=== PATIENT | male | born 1965 | race Caucasian/White ===

== ENCOUNTER 2020-07-14 15:54 | Emergency (ER) | payer OTHER, SELFPAY ==
--- NOTE | ~2020-07-14 | XR_ITS ---
XR ankle RT min 3V 07/14/2020 16:40 Indication: Right ankle pain after fall Procedure: 3 views right ankle Comparison: No prior studies for comparison. Findings: There is a posteriorly displaced oblique distal fibular fracture. There is a nondisplaced m edial malleolar fracture. Possible nondisplaced fracture of the posterior malleolus. There is widenin g of the medial ankle mortise with suggestion of punctate loose bodies in the joint space. Moderate s oft tissue swelling. Impression: 1: Oblique distal fibular fracture with mild dorsal displacement. 2: Nondisplaced medial malleolar fracture with widening of the medial ankle mortise. 3: Possible nondisplaced posterior malleolar fracture. Reviewed, dictated and finalized at location A. [employer]ING [employer] OPERATOR Impression: 1: Oblique distal fibular fracture with mild dorsal displacement. 2: Nondisplaced medial malleolar fracture with widening of the medial ankle mo rtise. 3: Possible nondisplaced posterior malleolar fracture.
--- NOTE | ~2020-07-14 | CT_ITS ---
EXAMINATION: CT ankle RT wo con DATE: 07/14/2020 17:34 INDICATION: History of fracture status post fall TECHNIQUE: Computed tomography (CT) of the right ankle was performed without intravenous contrast. Th e dose-length product was 628.56 mGy-cm. Automated exposure control and iterative reconstruction tech nique were employed. COMPARISON: No prior studies for comparison. FINDINGS: There is an oblique comminuted extra-articular fracture of the distal fibula. There is appr oximately one half bone width dorsal displacement and slight dorsal angulation. There is a comminuted minimally displaced posterior malleolar fracture which extends to the medial malleolus posteriorly. There is fluid along the posterior and medial aspect of the joint space with widening of the medial a nkle mortise. The talus is intact. No other fractures are seen. There are small loose bodies at the j oint space. IMPRESSION: 1. Oblique comminuted extra-articular fracture distal fibula with dorsal displacement and slight dors al angulation. 2: Comminuted minimally displaced posterior malleolar fracture extending to the posterior margin the medial malleolus. There is widening of the medial ankle mortise, likely due to ligament injury. Reviewed, dictated and finalized at location A. [employer] WORK SUPERVISOR IMPRESSION: 1. Oblique comminuted extra-articular fracture distal fibula with dorsal displa cement and slight dorsal angulation. 2: Comminuted minimally displaced posterior malleolar fracture extending to th e posterior margin the medial malleolus. There is widening of the medial ankle mortise, likely due to ligament injury.
[2020-07-14 15:58] VITALS: PULSE 78; RESP 18; TEMP 36.3; O2SAT 100
--- NOTE | 2020-07-14 16:15 | ED.GENADULT ---
HPI - General Adult General Chief complaint: Extremity Injury, Lower Stated complaint: Right Ankle Injury Time Seen by Provider: 07/14/20 16:14 Source: patient Mode of arrival: wheelchair Limitations: no limitations History of Present Illness HPI narrative: Patient was trying to put the screen up around his trampoline when he fell to the ground. There is an obvious deformity to his right ankle. Related Data Allergies Allergy/AdvReac Type Severity Reaction Status Date / Time camphor Allergy Unknown Verified 07/14/20 16:01 morphine Allergy Swelling Verified 07/14/20 16:01 of Lip/Tongue/Throat Review of Systems Review of Systems: All systems reviewed & are unremarkable except as noted in HPI and below PMFSH Family History Family History Other Family history of cardiovascular disease Family history of malignant neoplasm Social History Social History Smoking status: Never smoker Alcohol intake: never Substance use: never Additional occupation/education comments: truck driver heavy Exam Const: General: no acute distress and alert Orientation/consciousness: patient oriented x3 HENMT: Head: normal to inspection Eyes: Pupils: Equal, round and reactive pupils present Resp: Effort & Inspection: normal respiratory effort Auscultation: clear to auscultation bilaterally Cardio: Rate: regular rate Rhythm: regular rhythm Skin: General skin exam: normal color Extrem: General: capillary refill normal (right foot) Right lower extremity: edema Details: non-pitting and ankle (obvious deformity.) Details: tenderness and swelling Psych: Mental Status: mental status grossly normal Course Course Emergency Course: Clarification of mechanism of injury. in his words did not actually fall, stepped down and folded at ankle. Dr. Tapia reviewed plain films and CT. Recommends transfer to higher level of care. Spoke with Dr. Kim - ortho chief at [facility], recommends transfer to ED there for further treatment. Dr. Aquino in ED has accepted patient. Plan discussed with patient. Vital Signs Vital signs: Vital Signs Temperature 36.3 C L 07/14/20 15:58 Pulse Rate 78 07/14/20 15:58 Respiratory Rate 18 07/14/20 15:58 Pulse Oximetry 100 07/14/20 15:58 Temperature 36.3 C L 07/14/20 15:58 Pulse Rate 76 07/14/20 18:00 Respiratory Rate 20 07/14/20 18:00 Blood Pressure 168/74 H 07/14/20 18:00 Pulse Oximetry 97 07/14/20 18:00 Medical Decision Making Vital Signs Vital Signs: Vital Signs Temperature 36.3 C L 07/14/20 15:58 Pulse Rate 78 07/14/20 15:58 Respiratory Rate 18 07/14/20 15:58 Pulse Oximetry 100 07/14/20 15:58 Temperature 36.3 C L 07/14/20 15:58 Pulse Rate 76 07/14/20 18:00 Respiratory Rate 20 07/14/20 18:00 Blood Pressure 168/74 H 07/14/20 18:00 Pulse Oximetry 97 07/14/20 18:00 Discharge Plan Discharge Clinical Impression: Closed pilon fracture of right tibia, Fibula fracture Patient Disposition: Acute Care Hospital Condition: Stable Prescriptions: No Action oxycodone-acetaminophen 5-325 mg tablet 1 tablet PO Q6H PRN (Reason: pain) 5 Days Qty: 14 RF: 0 Follow-up/Referrals: PHYSICIAN NOT ON STAFF,NONSTAFF [Primary Care Provider] -
[2020-07-14] MEDS: HYDROcodone/acetaminophen (*CRX) 10-325 MG TABLET 1 TAB PO (16:46)
[2020-07-14 18:00] VITALS: BP 168/74; PULSE 76; RESP 20; O2SAT 97
--- NOTE | 2020-07-14 19:05 | PC.NURSE ---
Preparing to transfer to [facility] ED via EMS. Report to MICAH Mcduffie, to continue care. Preparing to splint right lower extremity.
[2020-07-14] MEDS: KETOROLAC 30 MG/ML VIAL (*BKC) IV PUSH (19:52)
== END 2020-07-14 19:56 | disposition short-term general hospital (02) ==
PROVIDERS: Emergency Provider Emergency Medicine
DX: S82.831A Other fracture of upper and lower end of right fibula, initial encounter for closed fracture (principal); S82.51XA Displaced fracture of medial malleolus of right tibia, initial encounter for closed fracture; W17.89XA Other fall from one level to another, initial encounter
CPT/HCPCS: 29515; 73610; 73700; 96374; 99285; A9270; J1885

== ENCOUNTER 2020-07-18 10:38 | Emergency (ER) | payer OTHER, SELFPAY ==
[2020-07-18 11:00] VITALS: BP 168/78; PULSE 78; RESP 18; TEMP 36.7; O2SAT 99
[2020-07-18] MEDS: HYDROcodone/acetaminophen (*CRX) 5-325 MG TABLET 1 TAB PO (11:33)
--- NOTE | 2020-07-18 12:02 | PC.NURSE ---
new splint applied
--- NOTE | 2020-07-18 12:06 | ED.GENADULT ---
HPI - General Adult General Chief complaint: Extremity Injury, Lower Stated complaint: tib/fib fracture/ needs pain rx Time Seen by Provider: 07/18/20 11:03 Source: patient and family Mode of arrival: ambulatory Limitations: no limitations History of Present Illness HPI narrative: Patient is a 55-year-old male who presents to emergency department for evaluation of continued right ankle pain patient sustained a fracture over the weekend was splinted in the early hours of Wednesday morning at [facility] in the emergency department was sent home with a small amount of narcotic pain medication patient notes that since he has run out of pain medication he has increasing pain patient notes that the pain is worse when he ambulates and improves 45 minutes after resting and elevating. Patient notes he has primarily been resting and elevating the extremity but only gets up when he has to go to the bathroom and notes that the pain was worse with coming to the ER today for further evaluation of only having a small amount of narcotic pain medication which will not get him to his Wednesday appointment. 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 HEAD: Normocephalic, atraumatic. EYES: PERRLA and EOMI. ENT: Nares clear, no rhinorrhea or epistaxis. Mucous membranes moist. CHEST: Clear to auscultation. No respiratory distress. No wheezes rales or rhonchi HEART: Regular rate and rhythm. No murmur heard. Normal peripheral pulses. ABDOMEN: Soft, nontender, nondistended EXTREMITIES: Normal range of motion. 1+ edema of the dorsal surface of the right foot. Skin is pink compartments are soft there is no breakdown or pressure sores noted SKIN: Warm, dry, no rash. NEURO: No focal deficits. Alert and oriented x3. Neurovascularly intact. Capillary refill less than 2 seconds. Dorsalis pedis and posterior tibialis pulses intact. PSYCH: Normal mood and affect. Course Course Emergency Course: Patient in the room no distress aware of case findings treatment plan diagnosis was splinted after evaluating for any pressure sores or other abnormalities. Patient neurovascularly intact pre and post procedure Vital Signs Vital signs: Vital Signs Temperature 98.0 F 07/18/20 11:00 Pulse Rate 78 07/18/20 11:00 Respiratory Rate 18 07/18/20 11:00 Blood Pressure 168/78 H 07/18/20 11:00 Pulse Oximetry 99 07/18/20 11:00 Temperature 98.0 F 07/18/20 11:00 Pulse Rate 78 07/18/20 11:00 Respiratory Rate 18 07/18/20 11:00 Blood Pressure 168/78 H 07/18/20 11:00 Pulse Oximetry 99 07/18/20 11:00 Procedures Orthopedic Splinting/Casting Injury #1: Splinting/Casting Date: 07/18/20 Splinting/Casting Time: 12:12 Side: right Lower Extremity Injury Location: lower leg Lower Extremity Immobilizer: posterior splint and stirrup splint Splint: customized in ED OCL: posterior Pre-Procedure Neuro Vascular Exam: normal Post-Procedure Neuro Vascular Exam: normal Other Orthopedic Equipment: crutches Other Procedure Procedure 1: Other Procedure
== END 2020-07-18 12:53 | disposition home or self-care (01) ==
PROVIDERS: Emergency Provider Emergency Medicine
DX: S82.891D Other fracture of right lower leg, subsequent encounter for closed fracture with routine healing (principal); X58.XXXD Exposure to other specified factors, subsequent encounter
CPT/HCPCS: 29515; 99283; A9270